=== PATIENT | male | born 2000 | race Caucasian/White ===

== ENCOUNTER 2024-12-04 21:31 | Emergency (ER) | payer SELFPAY ==
[~2024-12-04] VITALS: Ht 172.7 cm; Wt 77.1 kg
[2024-12-04] MEDS ORDERED: LORazepam 1 MG TAB PO ONE (21:40)
== END 2024-12-04 23:12 | disposition home or self-care (01) ==
LOC: ED 21:31
DX: F41.9 Anxiety disorder, unspecified (principal); R20.0 Anesthesia of skin

== ENCOUNTER 2025-01-18 13:34 | Emergency (ER) | payer SELFPAY ==
[~2025-01-18] VITALS: Ht 170.1 cm; Wt 63.5 kg
== END 2025-01-18 14:41 | disposition left against medical advice (07) ==
LOC: ED 13:34
DX: M54.50 Low back pain, unspecified (principal); Z53.21 Procedure and treatment not carried out due to patient leaving prior to being seen by health care provider